=== PATIENT | female | born 1975 | race Caucasian/White ===

== ENCOUNTER → 2019-08-30 11:34 | Outpatient (CLI) | payer OTHER, MEDICAID, SELFPAY ==
--- NOTE | 2019-08-30 | DI.RAD.S_ITS ---
PROCEDURE: XR ANKLE RT MIN 3V INDICATIONS: RIGHT FOOT PAIN/ARTHRALGIA TECHNIQUE: 3 views of the ankle were acquired. COMPARISON: None. FINDINGS: Bones: No fractures or dislocations. Ankle mortise is normally aligned. No suspicious bony lesions. Soft tissues: No tibiotalar joint effusion. Achilles tendon appears normal. IMPRESSION: No trauma found, no appreciable degenerative change. Dictated by: Jairo Mena M.D. on 08/30/2019 at 12:20 Approved by: Jairo Mena M.D. on 08/30/2019 at 12:21
--- NOTE | 2019-08-30 | DI.RAD.S_ITS ---
PROCEDURE: XR HIP W PEL IF DONE RT 2V INDICATIONS: RIGHT FOOT PAIN/ARTHRALGIA TECHNIQUE: 2 views of the hip were acquired. COMPARISON: None. FINDINGS: Bones: No fractures or dislocations. No suspicious bony lesions. The visualized pelvic ring appears intact. Soft tissues: No suspicious soft tissue calcifications or masses. IMPRESSION: A source of asymmetric right sided foot pain and hip arthralgias not seen. Dictated by: Jairo Mena M.D. on 08/30/2019 at 12:19 Approved by: Jairo Mena M.D. on 08/30/2019 at 12:19
--- NOTE | 2019-08-30 | DI.RAD.S_ITS ---
PROCEDURE: XR FOOT RT MIN 3V INDICATIONS: RIGHT FOOT PAIN/ARTHRALGIA TECHNIQUE: 3 views of the foot were acquired. COMPARISON: None. FINDINGS: Bones: No fractures or dislocations. No suspicious bony lesions. Mild degenerative first MTP joint osteoarthritis is present, with metatarsus primus varus and hallux valgus morphology and bunion formation at the medial first metatarsal head Soft tissues: No tibiotalar joint effusion. Achilles tendon appears normal. IMPRESSION: Podiatry related findings as discussed, no acute trauma found. Dictated by: Jairo Mena M.D. on 08/30/2019 at 12:19 Approved by: Jairo Mena M.D. on 08/30/2019 at 12:20
== END ==
PROVIDERS: PCP Family Medicine; Visit Provider Family Medicine
DX: M79.671 Pain in right foot (principal); M25.551 Pain in right hip; M19.071 Primary osteoarthritis, right ankle and foot; M20.31 Hallux varus (acquired), right foot; M20.11 Hallux valgus (acquired), right foot; M21.611 Bunion of right foot
CPT/HCPCS: 73502; 73610; 73630

== ENCOUNTER → 2022-08-13 15:53 | Outpatient (CLI) | payer OTHER, MEDICAID, SELFPAY ==
--- NOTE | 2022-08-13 15:56 | DI.RAD.S_ITS ---
PROCEDURE: XR HIP W PEL IF DONE LT 2V INDICATIONS: LEFT HIP PAIN/LOW BACK PAIN TECHNIQUE: AP pelvis with lateral view(s) of the left hip(s). COMPARISON: [facility], , XR HIP W PEL IF DONE RT 2V, 08/30/2019, 11:36. FINDINGS: Bones: No fractures or dislocations. Pelvic ring appears intact. No suspicious bony lesions. Soft tissues: The visualized bowel gas pattern is normal. No suspicious soft tissue calcifications. IMPRESSION: No definite radiographic abnormality. If pain persists with conservative management, consider cross sectional imaging such as CT or MRI for further assessment. Dictated by: Tawanda Owens [facility] Interpreted: Hayden Norton MD on 08/13/2022 at 16:14 Transcribed by: JEANETH on 08/13/2022 at 16:15 Approved by: Hayden Norton M.D. on 08/13/2022 at 17:32
--- NOTE | 2022-08-13 15:57 | DI.RAD.S_ITS ---
PROCEDURE: XR LUMBAR SPINE 2-3V INDICATIONS: LEFT HIP PAIN/LOW BACK PAIN TECHNIQUE: 3 views of the lumbar spine were acquired. COMPARISON: None. FINDINGS: Bones: 5 [id number] vertebrae are present. Grade 1 isthmic spondylolisthesis at the L5-S1 level where there is mild disc height loss.. No vertebral body compression fractures. No suspicious bony lesions. Soft tissues: Overlying bowel gas pattern is normal. No suspicious soft tissue calcifications. IMPRESSION: 1. Grade 1 isthmic spondylolisthesis L5-S1 where there is mild disc height loss. Dictated by: Tawanda Owens [facility] Interpreted: Hayden Norton MD on 08/13/2022 at 16:15 Transcribed by: JEANETH on 08/13/2022 at 16:16 Approved by: Hayden Norton M.D. on 08/13/2022 at 17:32
== END ==
PROVIDERS: PCP Family Medicine; Referring Provider Family Medicine; Visit Provider Family Medicine
DX: M43.17 Spondylolisthesis, lumbosacral region (principal); M25.552 Pain in left hip; M54.50 Low back pain, unspecified
CPT/HCPCS: 72100; 73502

== ENCOUNTER 2022-11-01 11:18 | Emergency (ER) | payer OTHER, MEDICAID, SELFPAY ==
[2022-11-01 11:20] VITALS: BP 138/80; PULSE 68; RESP 16; TEMP 36.8; O2SAT 100; BMI 31.2
[2022-11-01] MEDS: FLUORESCEIN 1 MG STRIP EYE-BOTH (11:53)
[2022-11-01] MEDS: PROPARACAINE 0.5% OPHTH SOL 1 DROPS EYE-BOTH (11:53)
--- NOTE | 2022-11-01 12:01 | ED_ITS ---
HPI - Eye Problem General Chief complaint: Skin/Abscess/Foreign Body Stated complaint: dog pulled eye lid & lip down and bit them Time Seen by Provider: 11/01/22 11:45 Source: patient Mode of arrival: Ambulatory Limitations: no limitations History of Present Illness HPI Narrative: This is a 47-year-old female who comes with complaint of dog bite her right eye and upper lip. Patient states it is her own dog she is going to give a cast sits reared back when it bit her. She states it has nipped her before. She states it is up-to-date on its rabies immunizations patient is unsure about her tetanus status. She states no pain to the eye itself she has not appreciate any vision changes. There is an injury to the right lower lid and a very small laceration to the upper left lip. Patient states she takes medications for chronic pain, anxiety, she has a full-time caregiver. She mentions multiple time she is very fearful of needles. She states allergies include baclofen and peanuts. Former smoker, no alcohol, no illicit. Related Data Home Medications Medication Instructions Recorded Confirmed Fluticasone Propionate/Salme 2 dose IH BID ##0 10/24/10 (Advair Diskus 500/50) HYDROXYZINE PAMOATE (Vistaril) 25 mg PO PRN ##0 10/24/10 Montelukast Sodium (Singulair) 10 mg PO Q DAY ##0 10/24/10 Oxycodone (Roxicodone) 20 mg PO QID ##0 10/24/10 albuterol sulfate 2.5 mg/3 mL 3 ml INH Q6HP ##0 07/03/11 (0.083 %) solution for nebulization diazepam 5 mg tablet 5 mg PO Q8HP ##0 07/03/11 Allergies Allergy/AdvReac Type Severity Reaction Status Date / Time baclofen Allergy Unknown Verified 11/01/22 11:53 peanut Allergy Verified 11/01/22 11:50 Review of Systems Review of Systems ROS Unobtainable: All systems reviewed & are unremarkable except as noted in HPI and below Patient History Social History Smoking Status: Former smoker Smoking Status: Former smoker Substance Use Type: does not use Exam Narrative Exam Narrative: GEN: well nourished, well appearing female, alert and oriented x 3, patient appears to be in moderate distress. HEENT: See below, pupils are equal round reactive to light, extraocular mo vements are intact, nares are clear, TMs are clear with no fluid, there is no conjunctival pallor. Throat is clear without any exudates, erythema, tonsillar enlargement or uvular deviation Visual acuity: right [20/50], left [20/30] without correction. IOP: Right 29 mm Hg, General: no globe trauma appreciated Eyelids: normal inspection, patient's right lower lid has significant defect with complete laceration at the midline extending down with large thin portion heating down her cheek that is approximately 2 cm, patient has defect to the soft tissue below with clear fat exposed underneath the eye, completely through the lid margin and gapped about a cm and possibly avulsion or loss of some tissue. Patient also has a very small 0.5 cm superficial laceration at the left upper border of her lip which is gapped when pulled but does not gape or bleed if not. Conjunctiva/Sclera: normal inspection Corneas: normal inspection, examined with fluroscein on right, patient has some hazy uptake at the bottom of the sclera, no obvious ulceration, laceration no waterfall sign. EOM: intact, no palsy/entrapment Pupils: PERRL, normal accomadation, pupil normal Anterior Chambers: normal inspection, no hypema Posterior: normal fundoscopic on bilaterally HEART: Regular rate and rhythm without murmur, clicks, rubs. LUNGS:Lungs clear to auscultation, no wheezes, rales, crackles, chest moves symmetrically ABD:bowel sounds normal, soft, non-tender, no guarding, rebound, rigidity, no masses noted, no hepatosplenomegaly :No CVA tenderness MSCL: Non-tender, no muscle atrophy, muscles strength 5/5 upper and lower extremities, full range of motion, normal gait NEURO:CN 2-12 intact, sensation normal SKIN: See above Initial Vital Signs Initial Vital Signs: Vital Signs Temperature 98.2 F 11/01/22 11:20 Pulse Rate 68 11/01/22 11:20 Respiratory Rate 16 11/01/22 11:20 Blood Pressure 138/80 11/01/22 11:20 Pulse Oximetry 100 11/01/22 11:20 Oxygen Delivery Method 11/01/22 11:20 Course Orders Ordered: ED Orders 11/01/22 12:10 CT facial bones wo con Stat 11/01/22 13:02 COVID19 -Nasal RAPID/Pre-Proc Stat Discontinued Medications Hydrocodone Bitart/Acetaminophen (Hydrocodone/Acet 5/325 Tablet) 1 tab PO NOW ONE Stop: 11/01/22 12:04 Last Admin: 11/01/22 12:13 Dose: 1 tab Documented By: BS Hydrocodone Bitart/Acetaminophen (Hydrocodone/Acet 5/325 Tablet) 1 tab PO NOW ONE Stop: 11/01/22 14:31 Last Admin: 11/01/22 14:39 Dose: 1 tab Documented By: BS Artificial Tears (Polyvinyl Alcohol Drops) 1 drops EYE-RIGHT PRN PRN PRN Reason: Dry Eye(s) Last Admin: 11/01/22 13:47 Dose: 1 bottle Documented By: BS Diazepam (Diazepam 5 Mg Tablet) 5 mg PO NOW ONE Stop: 11/01/22 12:04 Last Admin: 11/01/22 12:13 Dose: 5 mg Documented By: BS Diazepam (Diazepam 5 Mg Tablet) 5 mg PO NOW ONE Stop: 11/01/22 13:45 Last Admin: 11/01/22 14:39 Dose: 5 mg Documented By: BS Fluorescein Sodium (Fluorescein 1 Mg Strip) 1 mg EYE-BOTH NOW ONE Stop: 11/01/22 11:47 Last Admin: 11/01/22 11:53 Dose: 1 mg Documented By: BS Proparacaine HCl (Proparacaine 0.5% Ophth Donna) 1 drops EYE-BOTH NOW ONE Stop: 11/01/22 11:47 Last Admin: 11/01/22 11:53 Dose: 1 drops Documented By: BS Consultations Consultation #1: [facility] oculoplastic: Discussed patient has large laceration with possible defect of the lower lid and into the cheek which appears to require significant repair and is outside our ability or scope here locally. Discussed images were??? Sent Vital Signs Vital signs: Vital Signs - 8 hr 11/01/22 11:20 11/01/22 14:40 Temperature 98.2 F 97.5 F L Pulse Rate 68 70 Respiratory Rate 16 Blood Pressure 138/80 147/62 H Pulse Oximetry 100 99 Oxygen Delivery Method Room Air Room Air MDM - Eye Problem Lab Data Labs: Lab Results 11/01/22 Range/Units 13:02 SARS-CoV-2 (PCR) Negative (Negative) Imaging Data CT facial bones: Radiologist's Impression: Close Face CT (Signed) Jairo Mena - 11/01/22 Launch?[address] [address] [address] Scan Report Signed Patient: Narcisa Camacho MR#: [id number] : 1975 Acct:[id number] Age/Sex: 47 / F Date of Service: 11/01/22 Loc: ED Accession Number: [id number] ?? Procedure: CT facial bones wo con Ordering Provider: Siomara Martínez D.O. PROCEDURE:? CT FACIAL BONES WO CON ? INDICATIONS:? dog bite to right eyelid/cheek, deep ? TECHNIQUE:? Noncontrast 2.5 mm thick axial images acquired from the mandible through the frontal sinuses, with coronal and sagittal reformatting.? For radiation dose reduction, the following was used:? automated exposure control, adjustment of mA and/or kV according to patient size.? ? COMPARISON:? None. ? FINDINGS:? Image quality:? Excellent.? ? Bones and teeth:? Orbital kim are intact.? Sinus kim show no fracture or deformity.? Nasal bones and septum are intact.? Visualized portions of the mandible demonstrate no fractures or subluxation.? Zygomatic arches are intact.? Pterygoid plates are intact.? Visualized portions of the skull base and auditory canals are intact.? ? Sinuses:? Paranasal sinuses are aerated, without fluid levels, mucosal thickening, or mucoceles.? Mastoid air cells are aerated.? ? Soft tissues:? No edema, masses, or fluid collections on the left.? There is ed disha involving the lower eyelid region on the right which is irregular in its margination and there is a small amount of subcutaneous gas immediately ventral to the upper margin of the anterior right maxillary sinus osseous border.? No foreign body associated.? No enlarged lymph nodes.? No soft tissue lacerations or debris.? ? Vascular:? Visualized vascular structures appear normal in the absence of contrast.? Bony vascular foramina and canals are intact.? ? IMPRESSION:? Soft tissue injury as discussed involving the lower right eyelid region with a small amount of gas presumably secondary to deep bite wound, but without evidence of fracture or foreign body. ? ? Dictated by: Jairo Mena M.D. on 11/01/2022 at 13:09 ? ? Approved by: Jairo Mena M.D. on 11/01/2022 at 13:13?? [facility] Narrative Medical decision making narrative: This is a 47-year-old female with chronic pain, anxiety who presents with dog bite to the right lower eyelid, patient appears to not have any involvement of the eye itself fluorescein shows some haziness at the base but no obvious abrasion or laceration globe appears intact. Pressure was slightly elevated at 29 but patient was very difficult to assess and would continuously move her eye so may have not been a true pressure. Patient is missing enough of her lower lid that lateral canthotomy would not be helpful patient has a large defect. There is also a small laceration to the right as well as a small lip laceration that does not appear to require significant repair. Patient is unsure of her tetanus status, she is very fearful of needles and reluctant. Was given a dose of oral and pain medication as well as antianxiety medication. Discussed patient needs for appropriate treatment. Patient accepted by Ophthalmology, Dr. Silva, accepts for transfer. Images were reviewed that were sent. Will obtain COVID before patient leaves. Discussed facial bone CTs were obtained I do not have formal report but do not see obvious fracture. Patient accepted plan for transfer via BLS. Patient's CT facial bone shows soft tissue changes but no fracture or foreign body. Patient has politely refused tetanus. Did manage to get an IV placed. Patient also was started on artificial tears to keep her eye moist she can not close her eyelid currently. Discharge Plan Departure Patient Disposition: [facility] Clinical Impression: Laceration of cheek with complication Eyelid laceration, right Qualifiers: Encounter type: initial encounter Qualified Code(s): S01.111A - Laceration without foreign body of right eyelid and periocular area, initial encounter Prescriptions: No Action Fluticasone Propionate/Salme (Advair Diskus 500/50) 2 dose IH BID Qty: 0 Montelukast Sodium (Singulair) 10 mg PO Q DAY Qty: 0 Oxycodone (Roxicodone) 20 mg PO QID Qty: 0 HYDROXYZINE PAMOATE (Vistaril) 25 mg PO PRN Qty: 0 albuterol sulfate 2.5 MG/3 ML solution for nebulization 3 ml INH Q6HP Qty: 0 diazepam 5 MG tablet 5 mg PO Q8HP Qty: 0 Referrals: Gee Monk MD [Primary Care Provider] -
--- NOTE | 2022-11-01 12:10 | DI.CT.S_ITS ---
PROCEDURE: CT FACIAL BONES WO CON INDICATIONS: dog bite to right eyelid/cheek, deep TECHNIQUE: Noncontrast 2.5 mm thick axial images acquired from the mandible through the frontal sinuses, with coronal and sagittal reformatting. For radiation dose reduction, the following was used: automated exposure control, adjustment of mA and/or kV according to patient size. COMPARISON: None. FINDINGS: Image quality: Excellent. Bones and teeth: Orbital kim are intact. Sinus kim show no fracture or deformity. Nasal bones and septum are intact. Visualized portions of the mandible demonstrate no fractures or subluxation. Zygomatic arches are intact. Pterygoid plates are intact. Visualized portions of the skull base and auditory canals are intact. Sinuses: Paranasal sinuses are aerated, without fluid levels, mucosal thickening, or mucoceles. Mastoid air cells are aerated. Soft tissues: No edema, masses, or fluid collections on the left. There is edema involving the lower eyelid region on the right which is irregular in its margination and there is a small amount of subcutaneous gas immediately ventral to the upper margin of the anterior right maxillary sinus osseous border. No foreign body associated. No enlarged lymph nodes. No soft tissue lacerations or debris. Vascular: Visualized vascular structures appear normal in the absence of contrast. Bony vascular foramina and canals are intact. IMPRESSION: Soft tissue injury as discussed involving the lower right eyelid region with a small amount of gas presumably secondary to deep bite wound, but without evidence of fracture or foreign body. Dictated by: Jairo Mena M.D. on 11/01/2022 at 13:09 Approved by: Jairo Mena M.D. on 11/01/2022 at 13:13
[2022-11-01] MEDS: HYDROCODONE/ACET 5/325 TABLET 1 TAB PO ×2 (12:13→14:39)
[2022-11-01] MEDS: diazePAM 5 MG TABLET PO ×2 (12:13→14:39)
[2022-11-01 13:24] LABS: COVID19 -Nasal RAPID Negative (Negative)
[2022-11-01] MEDS: POLYVINYL ALCOHOL DROPS 1 DROPS EYE-RIGHT (13:47)
[2022-11-01 14:40] VITALS: BP 147/62; PULSE 70; TEMP 36.4; O2SAT 99
== END 2022-11-01 17:52 | disposition short-term general hospital (02) ==
PROVIDERS: Emergency Provider Emergency Medicine; PCP Family Medicine
DX: S01.411A Laceration without foreign body of right cheek and temporomandibular area, initial encounter (principal); S01.111A Laceration without foreign body of right eyelid and periocular area, initial encounter; W54.0XXA Bitten by dog, initial encounter; Z20.822 Contact with and (suspected) exposure to COVID-19
CPT/HCPCS: 36415; 70486; 87635; 99284; C9803

== ENCOUNTER → 2022-11-13 11:29 | Outpatient (CLI) | payer OTHER, MEDICAID, SELFPAY ==
--- NOTE | 2022-11-13 | DI.US.S_ITS ---
PROCEDURE: US PERIPH VENOUS LOW EXTREM LT INDICATIONS: Lymphedema TECHNIQUE: Real-time imaging, as well as color and pulse Doppler interrogation, were performed of the lower extremity deep veins from the inguinal ligament to the popliteal fossa. COMPARISON: None. FINDINGS: The common femoral, femoral and popliteal veins are normally compressible, and free of intraluminal thrombus. Color and pulse Doppler demonstrate normal phasic intraluminal flow. There is normal augmentation response to distal compression maneuver. IMPRESSION: Negative for deep venous thrombosis. Dictated by: Kaushal Millard M.D. on 11/13/2022 at 11:50 Approved by: Kaushal Millard M.D. on 11/13/2022 at 11:51
== END ==
PROVIDERS: PCP Family Medicine; Referring Provider Family Medicine; Visit Provider Family Medicine
DX: I89.0 Lymphedema, not elsewhere classified (principal)
CPT/HCPCS: 93971

== ENCOUNTER → 2023-05-19 12:42 | Outpatient (CLI) | payer OTHER, MEDICAID, SELFPAY ==
--- NOTE | 2023-05-19 | DI.RAD.S_ITS ---
PROCEDURE: XR SHOULDER LT MIN 2V INDICATIONS: Pain TECHNIQUE: 3 views of the shoulder were acquired. COMPARISON: None. FINDINGS: Bones: No fractures or dislocations. No suspicious bony lesions. Visualized ribs appear intact. Soft tissues: No suspicious soft tissue calcifications. IMPRESSION: Unremarkable left shoulder radiographs Approved by: Satnam Pelayo M.D. on 05/19/2023 at 16:26
--- NOTE | 2023-05-19 | DI.RAD.S_ITS ---
PROCEDURE: XR CERVICAL SPINE 4V OR 5V INDICATIONS: neck pain TECHNIQUE: 4 views of the cervical spine acquired. COMPARISON: None. FINDINGS: Bones: No fractures or dislocations to the C7 level. Oblique images demonstrate no bony foraminal stenoses. Disc space narrowing and mild facet arthropathy noted throughout the cervical spine. Mild straightening the normal cervical lordosis Soft tissues: No prevertebral soft tissue swelling. IMPRESSION: Mild degenerative disc disease and arthropathy without fracture or traumatic malalignment Approved by: Satnam Pelayo M.D. on 05/19/2023 at 16:28
== END ==
PROVIDERS: PCP Family Medicine; Referring Provider Family Medicine; Visit Provider Family Medicine
DX: M47.812 Spondylosis without myelopathy or radiculopathy, cervical region (principal); M50.30 Other cervical disc degeneration, unspecified cervical region; M79.602 Pain in left arm; M54.9 Dorsalgia, unspecified
CPT/HCPCS: 72050; 73030

== ENCOUNTER → 2024-12-18 15:02 | Outpatient (CLI) | payer OTHER, SELFPAY ==
--- NOTE | 2024-12-18 | DI.RAD.S_ITS ---
PROCEDURE: XR KNEE LT 3V INDICATIONS: LEFT KNEE PAIN TECHNIQUE: 3 views of the knee were acquired. COMPARISON: None. FINDINGS: Bones: No fractures or dislocations. No suspicious bony lesions. Soft tissues: No joint effusion. No suspicious soft tissue calcifications. IMPRESSION: No visualized acute fracture or dislocation. However, if clinical concern and/or pain persist, short interval imaging followup in 7-10 days is recommended, as occult injury cannot be definitively excluded. Dictated by: Jessica Stuart M.D. on 12/18/2024 at 15:58 Approved by: Jessica Stuart M.D. on 12/18/2024 at 16:06
== END ==
PROVIDERS: PCP Family Medicine; Referring Provider Family Medicine; Visit Provider Family Medicine
DX: M25.562 Pain in left knee (principal)
CPT/HCPCS: 73562